=== PATIENT | male | born 1965 | race Caucasian/White ===

== ENCOUNTER 2022-07-09 16:50 | Inpatient (IN) | payer OTHER ==
[2022-07-09 19:47] VITALS: BMI 24.2
[2022-07-09] MEDS ORDERED: IBUPROFEN 400 MG TABLET (FP) PO PRN (20:47)
[2022-07-09] MEDS ORDERED: guaiFENesin 600 MG TABLET.ER (FP) PO PRN (20:47)
[2022-07-09] MEDS ORDERED: POLYETHYLENE GLYCOL (HEALTHYLAX) 3350 17 GM PACKET PO PRN (20:47)
[2022-07-09] MEDS ORDERED: LOPERAMIDE HCL 2 MG CAPSULE PO PRN (20:47)
[2022-07-09] MEDS ORDERED: IBUPROFEN 600 MG TABLET (FP) PO PRN (20:47)
[2022-07-09] MEDS ORDERED: MELATONIN 5 MG TABLETS PO PRN (20:47)
[2022-07-09] MEDS ORDERED: BENZOCAINE/MENTHOL (CHLORASEPTIC ) LOZENGE MM PRN (20:47)
[2022-07-09] MEDS ORDERED: P-EPHED 60MG/TRIPROLIDI 2.5MG TABLET PO PRN (20:47)
[2022-07-09] MEDS ORDERED: MAG HYDROX/AL HYDROX/SIMETH 30 ML UNIT-DOSE CUP PO PRN (20:47)
[2022-07-09] MEDS ORDERED: BENZONATATE 200 MG CAPSULE PO PRN (20:47)
[2022-07-09] MEDS ORDERED: hydrOXYzine PAMOATE 25 MG CAPSULE (FP) PO PRN (20:47)
[2022-07-09] MEDS ORDERED: MAGNESIUM HYDROX 2400MG/30ML ORAL SUSPENSION 30 ML CUP PO PRN (20:47)
[2022-07-10] MEDS ORDERED: TUBERCULIN PPD 5 TU/0.1ML VIAL ID ONE (01:13)
[2022-07-10] MEDS: THIAMINE HCL 100 MG TABLET (FP) PO SCH ×2 (01:23→21:42)
[2022-07-10] MEDS: PRENATAL VITAMINS W/ FOLIC ACID TABLET (FP) PO SCH (10:03)
[2022-07-10 10:41] LABS: HEMATOCRIT 39.9 % (35.4-49); HEMOGLOBIN 13.1 GM/dL (11.7-16.9); MCH 29.4 pg (25.7-33.7); MCHC 32.9 g/dl (32.0-35.9); MEAN CELL VOLUME 89.4 fl (80-96); MEAN PLT VOLUME 9.3 fl (7.5-11.1); PLATELET COUNT 227 10^3/uL (134-434); RBC 4.47 M/mm3 (4.00-5.60); RDW 13.7 % (11.9-15.9); WHITE BLOOD COUNT 6.3 K/mm3 (4.0-10.0)
[2022-07-10 11:10] LABS: ALBUMIN 3.5 g/dl (3.4-5.0); BLOOD UREA NITROGEN 30.3 mg/dL (7-18); CALCIUM 8.5 mg/dL (8.5-10.1)
[2022-07-10 11:13] LABS: CREATININE 0.9 mg/dL (0.55-1.3)
[2022-07-10 11:15] LABS: BILIRUBIN,TOTAL 0.8 mg/dL (0.2-1); TOT PROT 6.6 g/dl (6.4-8.2)
[2022-07-10] MEDS ORDERED: BUPRENORPHINE/NALOXONE 8 MG/2 MG FILM PACKET SL ONE ×2 (11:45→18:00)
[2022-07-10] MEDS ORDERED: LISINOPRIL HCTZ PO SCH (12:00)
[2022-07-10] MEDS: LISINOPRIL 20 MG TABLET PO SCH (13:02)
[2022-07-10] MEDS: HYDROCHLOROTHIAZIDE 12.5 MG CAPSULE (FP) PO SCH (13:02)
[2022-07-10] MEDS ORDERED: ALBUTEROL SO4 HFA INHALER IH PRN (14:48)
[2022-07-10] MEDS ORDERED: BUPRENORPHINE/NALOXONE 8 MG/2 MG FILM PACKET SL SCH (15:00)
[2022-07-10] MEDS: NICOTINE 10 MG CARTRIDGE (INHALER) IH PRN (15:24)
[2022-07-10] MEDS: hydrOXYzine PAMOATE 50 MG CAPSULE (FP) PO SCH (21:42)
[2022-07-10] MEDS: traZODone HCL 100 MG TABLET (FP) PO SCH (21:42)
[2022-07-10] MEDS ORDERED: CLOTRIMAZOLE 1%TOPICAL SOLUTION 30 ML BOTTLE TP SCH (22:00)
[2022-07-10] MEDS ORDERED: CICLOPIROX OLAMINE TP SCH (22:00)
[2022-07-11] MEDS: BUPRENORPHINE/NALOXONE 8 MG/2 MG FILM PACKET SL SCH ×2 (06:56→14:50)
[2022-07-11] MEDS: HYDROCHLOROTHIAZIDE 12.5 MG CAPSULE (FP) PO SCH (11:58)
[2022-07-11] MEDS: NICOTINE 14 MG/24 HOURS TOPICAL PATCH TD SCH (11:58)
[2022-07-11] MEDS: LISINOPRIL 20 MG TABLET PO SCH (11:58)
[2022-07-11] MEDS: PRENATAL VITAMINS W/ FOLIC ACID TABLET (FP) PO SCH (11:58)
[2022-07-11] MEDS ORDERED: BUPRENORPHINE/NALOXONE 8 MG/2 MG FILM PACKET SL SCH (15:00)
[2022-07-11] MEDS: hydrOXYzine PAMOATE 50 MG CAPSULE (FP) PO SCH (21:01)
[2022-07-11] MEDS: THIAMINE HCL 100 MG TABLET (FP) PO SCH (21:01)
[2022-07-11] MEDS: traZODone HCL 100 MG TABLET (FP) PO SCH (21:01)
[2022-07-12] MEDS: BUPRENORPHINE/NALOXONE 8 MG/2 MG FILM PACKET SL SCH ×2 (07:52→14:19)
[2022-07-12 11:03] LABS: PH,URINE 5.5 (5.0-8.0); URINE APPEARANCE CLEAR; URINE BILIRUBIN NEGATIVE (NEGATIVE); URINE COLOR YELLOW; URINE GLUCOSE (UA) NEGATIVE (NEGATIVE); URINE KETONE NEGATIVE (NEGATIVE); URINE LEUK ESTERASE NEGATIVE (NEGATIVE); URINE NITRITE NEGATIVE (NEGATIVE); URINE PROTEIN NEGATIVE (NEGATIVE); URINE UROBILINOGEN 0.2 mg/dL (0.2-1.0)
[2022-07-12] MEDS: HYDROCHLOROTHIAZIDE 12.5 MG CAPSULE (FP) PO SCH (11:12)
[2022-07-12] MEDS: LISINOPRIL 20 MG TABLET PO SCH (11:12)
[2022-07-12] MEDS: PRENATAL VITAMINS W/ FOLIC ACID TABLET (FP) PO SCH (11:12)
[2022-07-12] MEDS: NICOTINE 14 MG/24 HOURS TOPICAL PATCH TD SCH (11:12)
[2022-07-12] MEDS: hydrOXYzine PAMOATE 50 MG CAPSULE (FP) PO SCH (21:50)
[2022-07-12] MEDS: traZODone HCL 100 MG TABLET (FP) PO SCH (21:50)
[2022-07-12] MEDS: THIAMINE HCL 100 MG TABLET (FP) PO SCH (21:50)
[2022-07-13] MEDS: BUPRENORPHINE/NALOXONE 8 MG/2 MG FILM PACKET SL SCH ×2 (06:22→14:41)
[2022-07-13] MEDS: NICOTINE 14 MG/24 HOURS TOPICAL PATCH TD SCH (10:14)
[2022-07-13] MEDS: AMOXICILLIN 500 MG CAPSULE (FP) PO SCH ×2 (10:14→16:49)
[2022-07-13] MEDS: LISINOPRIL 20 MG TABLET PO SCH (10:14)
[2022-07-13] MEDS: HYDROCHLOROTHIAZIDE 12.5 MG CAPSULE (FP) PO SCH (10:14)
[2022-07-13] MEDS: PRENATAL VITAMINS W/ FOLIC ACID TABLET (FP) PO SCH (10:14)
[2022-07-13] MEDS: ACETAMINOPHEN 325 MG TABLET (FP) PO PRN ×2 (11:51→18:53)
[2022-07-13] MEDS: METHOCARBAMOL 500 MG TABLET PO PRN (11:51)
[2022-07-13] MEDS: DICLOFENAC SODIUM 75 MG TABLET.DR PO SCH ×2 (11:53→21:44)
[2022-07-13] MEDS: THIAMINE HCL 100 MG TABLET (FP) PO SCH (21:44)
[2022-07-13] MEDS: hydrOXYzine PAMOATE 50 MG CAPSULE (FP) PO SCH (21:44)
[2022-07-13] MEDS: traZODone HCL 100 MG TABLET (FP) PO SCH (21:44)
[2022-07-14] MEDS: AMOXICILLIN 500 MG CAPSULE (FP) PO SCH ×4 (01:13→23:14)
[2022-07-14] MEDS: ACETAMINOPHEN 325 MG TABLET (FP) PO PRN ×3 (04:01→19:11)
[2022-07-14] MEDS: BUPRENORPHINE/NALOXONE 8 MG/2 MG FILM PACKET SL SCH ×2 (06:30→14:21)
[2022-07-14] MEDS: NICOTINE 10 MG CARTRIDGE (INHALER) IH PRN (07:25)
[2022-07-14] MEDS: DICLOFENAC SODIUM 75 MG TABLET.DR PO SCH ×2 (10:34→21:49)
[2022-07-14] MEDS: PRENATAL VITAMINS W/ FOLIC ACID TABLET (FP) PO SCH (10:34)
[2022-07-14] MEDS: LISINOPRIL 20 MG TABLET PO SCH (10:34)
[2022-07-14] MEDS: HYDROCHLOROTHIAZIDE 12.5 MG CAPSULE (FP) PO SCH (10:34)
[2022-07-14] MEDS: NICOTINE 14 MG/24 HOURS TOPICAL PATCH TD SCH (10:35)
[2022-07-14] MEDS: hydrOXYzine PAMOATE 50 MG CAPSULE (FP) PO SCH (21:49)
[2022-07-14] MEDS: traZODone HCL 100 MG TABLET (FP) PO SCH (21:49)
[2022-07-14] MEDS: THIAMINE HCL 100 MG TABLET (FP) PO SCH (21:49)
[2022-07-15] MEDS: BUPRENORPHINE/NALOXONE 8 MG/2 MG FILM PACKET SL SCH ×2 (06:24→14:48)
[2022-07-15] MEDS: ACETAMINOPHEN 325 MG TABLET (FP) PO PRN (07:28)
[2022-07-15] MEDS: AMOXICILLIN 500 MG CAPSULE (FP) PO SCH ×2 (08:19→16:45)
[2022-07-15] MEDS: HYDROCHLOROTHIAZIDE 12.5 MG CAPSULE (FP) PO SCH (10:31)
[2022-07-15] MEDS: PRENATAL VITAMINS W/ FOLIC ACID TABLET (FP) PO SCH (10:31)
[2022-07-15] MEDS: DICLOFENAC SODIUM 75 MG TABLET.DR PO SCH ×2 (10:31→21:45)
[2022-07-15] MEDS: LISINOPRIL 20 MG TABLET PO SCH (10:31)
[2022-07-15] MEDS: NICOTINE 14 MG/24 HOURS TOPICAL PATCH TD SCH (10:31)
[2022-07-15] MEDS: THIAMINE HCL 100 MG TABLET (FP) PO SCH (21:44)
[2022-07-15] MEDS: traZODone HCL 100 MG TABLET (FP) PO SCH (21:44)
[2022-07-15] MEDS: hydrOXYzine PAMOATE 50 MG CAPSULE (FP) PO SCH (21:44)
[2022-07-16] MEDS: AMOXICILLIN 500 MG CAPSULE (FP) PO SCH ×3 (00:07→16:39)
[2022-07-16] MEDS: BUPRENORPHINE/NALOXONE 8 MG/2 MG FILM PACKET SL SCH ×2 (06:16→14:08)
[2022-07-16] MEDS: PRENATAL VITAMINS W/ FOLIC ACID TABLET (FP) PO SCH (10:25)
[2022-07-16] MEDS: HYDROCHLOROTHIAZIDE 12.5 MG CAPSULE (FP) PO SCH (10:26)
[2022-07-16] MEDS: LISINOPRIL 20 MG TABLET PO SCH (10:26)
[2022-07-16] MEDS: DICLOFENAC SODIUM 75 MG TABLET.DR PO SCH ×2 (10:26→21:42)
[2022-07-16] MEDS: NICOTINE 14 MG/24 HOURS TOPICAL PATCH TD SCH (10:27)
[2022-07-16] MEDS: NICOTINE 10 MG CARTRIDGE (INHALER) IH PRN (10:32)
[2022-07-16] MEDS: THIAMINE HCL 100 MG TABLET (FP) PO SCH (21:41)
[2022-07-16] MEDS: traZODone HCL 100 MG TABLET (FP) PO SCH (21:41)
[2022-07-16] MEDS: hydrOXYzine PAMOATE 50 MG CAPSULE (FP) PO SCH (21:41)
[2022-07-17] MEDS: AMOXICILLIN 500 MG CAPSULE (FP) PO SCH ×3 (01:19→16:51)
[2022-07-17] MEDS: BUPRENORPHINE/NALOXONE 8 MG/2 MG FILM PACKET SL SCH ×2 (06:19→14:17)
[2022-07-17] MEDS: LISINOPRIL 20 MG TABLET PO SCH (10:06)
[2022-07-17] MEDS: HYDROCHLOROTHIAZIDE 12.5 MG CAPSULE (FP) PO SCH (10:06)
[2022-07-17] MEDS: NICOTINE 14 MG/24 HOURS TOPICAL PATCH TD SCH (10:06)
[2022-07-17] MEDS: PRENATAL VITAMINS W/ FOLIC ACID TABLET (FP) PO SCH (10:06)
[2022-07-17] MEDS: DICLOFENAC SODIUM 75 MG TABLET.DR PO SCH ×2 (10:07→21:26)
[2022-07-17] MEDS: traZODone HCL 100 MG TABLET (FP) PO SCH (21:24)
[2022-07-17] MEDS: THIAMINE HCL 100 MG TABLET (FP) PO SCH (21:25)
[2022-07-17] MEDS: hydrOXYzine PAMOATE 50 MG CAPSULE (FP) PO SCH (21:25)
[2022-07-18] MEDS: AMOXICILLIN 500 MG CAPSULE (FP) PO SCH ×4 (00:04→23:27)
[2022-07-18] MEDS: BUPRENORPHINE/NALOXONE 8 MG/2 MG FILM PACKET SL SCH ×2 (06:23→14:44)
[2022-07-18] MEDS: NICOTINE 10 MG CARTRIDGE (INHALER) IH PRN (08:54)
[2022-07-18] MEDS: NICOTINE 14 MG/24 HOURS TOPICAL PATCH TD SCH (10:02)
[2022-07-18] MEDS: PRENATAL VITAMINS W/ FOLIC ACID TABLET (FP) PO SCH (10:02)
[2022-07-18] MEDS: HYDROCHLOROTHIAZIDE 12.5 MG CAPSULE (FP) PO SCH (10:03)
[2022-07-18] MEDS: LISINOPRIL 20 MG TABLET PO SCH (10:03)
[2022-07-18] MEDS: DICLOFENAC SODIUM 75 MG TABLET.DR PO SCH ×2 (10:04→21:39)
[2022-07-18] MEDS: THIAMINE HCL 100 MG TABLET (FP) PO SCH (21:38)
[2022-07-18] MEDS: traZODone HCL 100 MG TABLET (FP) PO SCH (21:38)
[2022-07-18] MEDS: hydrOXYzine PAMOATE 50 MG CAPSULE (FP) PO SCH (21:38)
[2022-07-19] MEDS: BUPRENORPHINE/NALOXONE 8 MG/2 MG FILM PACKET SL SCH ×2 (06:08→14:33)
[2022-07-19] MEDS: AMOXICILLIN 500 MG CAPSULE (FP) PO SCH ×2 (07:50→15:00)
[2022-07-19] MEDS: NICOTINE 14 MG/24 HOURS TOPICAL PATCH TD SCH (09:55)
[2022-07-19] MEDS: HYDROCHLOROTHIAZIDE 12.5 MG CAPSULE (FP) PO SCH (09:55)
[2022-07-19] MEDS: LISINOPRIL 20 MG TABLET PO SCH (09:56)
[2022-07-19] MEDS: PRENATAL VITAMINS W/ FOLIC ACID TABLET (FP) PO SCH (09:56)
[2022-07-19] MEDS: DICLOFENAC SODIUM 75 MG TABLET.DR PO SCH ×2 (09:57→21:55)
[2022-07-19] MEDS: NICOTINE 10 MG CARTRIDGE (INHALER) IH PRN (09:58)
[2022-07-19] MEDS: hydrOXYzine PAMOATE 50 MG CAPSULE (FP) PO SCH (21:53)
[2022-07-19] MEDS: THIAMINE HCL 100 MG TABLET (FP) PO SCH (21:53)
[2022-07-19] MEDS: traZODone HCL 100 MG TABLET (FP) PO SCH (21:53)
[2022-07-19] MEDS: METHOCARBAMOL 500 MG TABLET PO PRN (21:54)
[2022-07-20] MEDS: AMOXICILLIN 500 MG CAPSULE (FP) PO SCH (00:34)
[2022-07-20] MEDS: BUPRENORPHINE/NALOXONE 8 MG/2 MG FILM PACKET SL SCH ×2 (05:55→15:41)
[2022-07-20 06:50] VITALS: RESP 16
[2022-07-20] MEDS: NICOTINE 10 MG CARTRIDGE (INHALER) IH PRN (07:58)
[2022-07-20] MEDS: PRENATAL VITAMINS W/ FOLIC ACID TABLET (FP) PO SCH (09:43)
[2022-07-20] MEDS: NICOTINE 14 MG/24 HOURS TOPICAL PATCH TD SCH (09:44)
[2022-07-20] MEDS: LISINOPRIL 20 MG TABLET PO SCH (09:44)
[2022-07-20] MEDS: DICLOFENAC SODIUM 75 MG TABLET.DR PO SCH ×2 (09:44→21:10)
[2022-07-20] MEDS: HYDROCHLOROTHIAZIDE 12.5 MG CAPSULE (FP) PO SCH (09:44)
[2022-07-20] MEDS: TOLNAFTATE 1% CREAM 15 GM TUBE TP SCH ×2 (11:59→21:09)
[2022-07-20] MEDS: THIAMINE HCL 100 MG TABLET (FP) PO SCH (21:08)
[2022-07-20] MEDS: traZODone HCL 100 MG TABLET (FP) PO SCH (21:08)
[2022-07-20] MEDS: hydrOXYzine PAMOATE 50 MG CAPSULE (FP) PO SCH (21:08)
[2022-07-21] MEDS: BUPRENORPHINE/NALOXONE 8 MG/2 MG FILM PACKET SL SCH ×2 (06:06→14:12)
[2022-07-21] MEDS: HYDROCHLOROTHIAZIDE 12.5 MG CAPSULE (FP) PO SCH (09:42)
[2022-07-21] MEDS: PRENATAL VITAMINS W/ FOLIC ACID TABLET (FP) PO SCH (09:42)
[2022-07-21] MEDS: NICOTINE 14 MG/24 HOURS TOPICAL PATCH TD SCH (09:42)
[2022-07-21] MEDS: LISINOPRIL 20 MG TABLET PO SCH (09:42)
[2022-07-21] MEDS: TOLNAFTATE 1% CREAM 15 GM TUBE TP SCH ×2 (09:43→21:16)
[2022-07-21] MEDS: DICLOFENAC SODIUM 75 MG TABLET.DR PO SCH ×2 (09:43→21:15)
[2022-07-21] MEDS: NICOTINE 10 MG CARTRIDGE (INHALER) IH PRN (09:44)
[2022-07-21] MEDS: traZODone HCL 100 MG TABLET (FP) PO SCH (21:15)
[2022-07-21] MEDS: hydrOXYzine PAMOATE 50 MG CAPSULE (FP) PO SCH (21:15)
[2022-07-21] MEDS: THIAMINE HCL 100 MG TABLET (FP) PO SCH (21:15)
[2022-07-22] MEDS: BUPRENORPHINE/NALOXONE 8 MG/2 MG FILM PACKET SL SCH ×2 (05:59→14:21)
[2022-07-22] MEDS: NICOTINE 14 MG/24 HOURS TOPICAL PATCH TD SCH (09:40)
[2022-07-22] MEDS: PRENATAL VITAMINS W/ FOLIC ACID TABLET (FP) PO SCH (09:40)
[2022-07-22] MEDS: HYDROCHLOROTHIAZIDE 12.5 MG CAPSULE (FP) PO SCH (09:40)
[2022-07-22] MEDS: LISINOPRIL 20 MG TABLET PO SCH (09:40)
[2022-07-22] MEDS: DICLOFENAC SODIUM 75 MG TABLET.DR PO SCH ×2 (09:41→21:08)
[2022-07-22] MEDS: TOLNAFTATE 1% CREAM 15 GM TUBE TP SCH ×2 (09:41→21:06)
[2022-07-22] MEDS: NICOTINE 10 MG CARTRIDGE (INHALER) IH PRN (16:36)
[2022-07-22] MEDS: hydrOXYzine PAMOATE 50 MG CAPSULE (FP) PO SCH (21:06)
[2022-07-22] MEDS: THIAMINE HCL 100 MG TABLET (FP) PO SCH (21:06)
[2022-07-22] MEDS: traZODone HCL 100 MG TABLET (FP) PO SCH (21:06)
[2022-07-23] MEDS: BUPRENORPHINE/NALOXONE 8 MG/2 MG FILM PACKET SL SCH ×2 (06:05→16:02)
[2022-07-23] MEDS: PRENATAL VITAMINS W/ FOLIC ACID TABLET (FP) PO SCH (09:50)
[2022-07-23] MEDS: NICOTINE 14 MG/24 HOURS TOPICAL PATCH TD SCH (09:50)
[2022-07-23] MEDS: HYDROCHLOROTHIAZIDE 12.5 MG CAPSULE (FP) PO SCH (09:50)
[2022-07-23] MEDS: TOLNAFTATE 1% CREAM 15 GM TUBE TP SCH ×2 (09:50→21:07)
[2022-07-23] MEDS: LISINOPRIL 20 MG TABLET PO SCH (09:50)
[2022-07-23] MEDS: DICLOFENAC SODIUM 75 MG TABLET.DR PO SCH ×2 (09:51→21:06)
[2022-07-23] MEDS: hydrOXYzine PAMOATE 50 MG CAPSULE (FP) PO SCH (21:06)
[2022-07-23] MEDS: traZODone HCL 100 MG TABLET (FP) PO SCH (21:06)
[2022-07-23] MEDS: THIAMINE HCL 100 MG TABLET (FP) PO SCH (21:08)
[2022-07-24] MEDS: BUPRENORPHINE/NALOXONE 8 MG/2 MG FILM PACKET SL SCH (06:02)
[2022-07-24 06:40] VITALS: BP 148/69; PULSE 58; TEMP 97
[2022-07-24] MEDS: NICOTINE 14 MG/24 HOURS TOPICAL PATCH TD SCH (09:38)
[2022-07-24] MEDS: HYDROCHLOROTHIAZIDE 12.5 MG CAPSULE (FP) PO SCH (09:38)
[2022-07-24] MEDS: PRENATAL VITAMINS W/ FOLIC ACID TABLET (FP) PO SCH (09:38)
[2022-07-24] MEDS: LISINOPRIL 20 MG TABLET PO SCH (09:38)
[2022-07-24] MEDS: DICLOFENAC SODIUM 75 MG TABLET.DR PO SCH (09:40)
[2022-07-24] MEDS: TOLNAFTATE 1% CREAM 15 GM TUBE TP SCH (09:40)
== END 2022-07-24 10:15 | disposition home or self-care (01) | DRG 772 ==
LOC: Y5N 07-10 00:52
PROVIDERS: ADMIT Allergy & Immunology; ATTEND Psychiatry & Neurology Pain Medicine
PROC: HZ42ZZZ Group Counseling for Substance Abuse Treatment, Cognitive-Behavioral (ICD-10-PCS; principal; 2022-07-10)
DX: F11.20 Opioid dependence, uncomplicated (principal); F10.20 Alcohol dependence, uncomplicated; F14.10 Cocaine abuse, uncomplicated; F17.210 Nicotine dependence, cigarettes, uncomplicated; F19.282 Other psychoactive substance dependence with psychoactive substance-induced sleep disorder; I10 Essential (primary) hypertension; B35.3 Tinea pedis; Z56.0 Unemployment, unspecified; Z59.01 Sheltered homelessness
CPT/HCPCS: 36415; 80053; 81003; 85027; 86780; 87811; C9803-CS; U0003; U0005